=== PATIENT | male | born 1995 | race African-American/Black ===

== ENCOUNTER → 2018-07-29 16:33 | Emergency (ER) | payer OTHER ==
--- NOTE | 2018-07-29 16:59 | ED ---
Psychiatric Complaint - HPI Summary HPI Summary: A 23 y/o male brought in by police presents to [facility] because his mother is concerned that the patient has not been taking his medications for schizophrenia or bipolar. The patient is from [place], is living alone, reports a good relationship with his mother, denies SI or HI, and denies being diagnosed with schizophrenia or bipolar or requiring medications. The patient denies drug or alcohol use. He claims that he is here in [place] on vacation for one month. He gave permission to speak with his mother. At triage he rated his pain as a 0/10 in severity. - History Of Current Complaint Chief Complaint: EDPsychosocial Time Seen by Provider: 07/29/18 16:43 Hx Obtained From: Patient, Other: - police Onset/Duration: Sudden Onset, Lasting Hours, Still Present Timing: Hours Severity Initially: Mild Severity Currently: Mild Character: Depressed Aggravating Factor(s): Nothing Alleviating Factor(s): Nothing Associated Signs And Symptoms: Positive: Negative Has Suicidal: Denies: Thoughts Has Homicidal: Denies: Thoughts - Allergies/Home Medications Allergies/Adverse Reactions: Allergies Allergy/AdvReac Type Severity Reaction Status Date / Time No Known Allergies Allergy Verified 07/29/18 16:40 Home Medications: Home Medications NK [No Home Medications Reported] 07/29/18 [History Confirmed 07/29/18] PMH/Surg Hx/FS Hx/Imm Hx Sensory History: Reports: Hx Deafness EENT History: Reports: Hx Deafness Psychiatric History: Reports: Hx Schizophrenia - according to mother, Hx Bipolar Disorder - according to mother Infectious Disease History: No Infectious Disease History: Denies: Traveled Outside the [place] in Last 30 Days - Family History Known Family History: Positive: Non-Contributory - Social History Alcohol Use: None Hx Substance Use: No Substance Use Type: Reports: None Hx Tobacco Use: No Smoking Status (MU): Never Smoked Tobacco Review of Systems Negative: Fever Psychological: Other - negative: SI and HI Positive: Other - positive: reportedly mother believes that the patient is not taking medications for schizophrenia and bipolar but the patient claims that he has not been diagnosed with either All Other Systems Reviewed And Are Negative: Yes Physical Exam - Summary Physical Exam Summary: GENERAL: Patient is a well-developed and nourished M who is lying comfortable in the stretcher. Patient is not in any acute respiratory distress. HEAD AND FACE: Normocephalic EYES: PERRLA, EOMI x 2. EARS: Hearing grossly intact. MOUTH: Oropharynx within normal limits. NECK: Supple, trachea is midline, no adenopathy, no JVD, no carotid bruit. CHEST: Symmetric, no tenderness at palpation LUNGS: Clear to auscultation bilaterally. No wheezing or crackles. CVS: Regular rate and rhythm, S1 and S2 present, no murmurs or gallops appreciated. ABDOMEN: Soft, non-tender. Bowel sounds are normal. No abnormal abdominal pulsations. EXTREMITIES: Full ROM in all major joints, no edema, no cyanosis or clubbing. NEURO: Alert and oriented x 3. No acute neurological deficits. Speech is normal and follows commands. SKIN: Dry and warm Psych: flat and sad affect Triage Information Reviewed: Yes Vital Signs On Initial Exam: Initial Vitals Temp Pulse Resp BP Pulse Ox 98.4 F 101 16 153/85 100 07/29/18 16:35 07/29/18 16:35 07/29/18 16:35 07/29/18 16:35 07/29/18 16:35 Vital Signs Reviewed: Yes Diagnostics - Vital Signs Vital Signs Temp Pulse Resp BP Pulse Ox 07/29/18 16:35 98.4 F 101 16 153/85 100 - Laboratory Result Diagrams: 07/29/18 17:13 07/29/18 17:13 Lab Statement: Any lab studies that have been ordered have been reviewed, and results considered in the medical decision making process. Re-Evaluation - Re-Evaluation First Eval Re-Evaluation Time: 16:52 Change: Unchanged Comment: Pt cleared for MHE. Course/Dx - Course Course Of Treatment: A 23 y/o male brought in by police presents to [facility] because his mother is concerned that the patient has not been taking his medications for schizophrenia or bipolar. The patient denies having schizoprhenia or bipolar. The physical exam revealed a flat and sad affect. Bloodwork, chemistries, labs and toxicology obtained and the patient has been medically cleared for MHE. Per mental health fur tinter, the patient wants to be admitted. Discussed case with Dr. Florez, psych, who recommends placing the patient on a Mental health hold in order to get more history. The patient will be signed out from Dr. Torres to Dr. Weldon upon shift change at 19:00 07/29/18 pending mental health hold. - Differential Dx/Clinical Impression Provider Diagnosis: Mental health problem - Physician Notifications Discussed Care Of Patient With: Filiberto Florez Time Discussed With Above Provider: 18:45 Instructed by Provider To: Other - recommends placing the patient on a Mental health hold in order to get more history. Discharge - Sign-Out/Discharge Documenting (check all that apply): Sign-Out Patient Signing out patient TO: Heidi Weldon - pending mental health hold Patient Received Moderate/Deep Sedation with Procedure: No - Discharge Plan Condition: Stable Referrals: No Primary Care Phys,NOPCP [Primary Care Provider] - - Billing Disposition and Condition Condition: STABLE - Attestation Statements Document Initiated by Scribe: Yes Documenting Scribe: Jensen Thorpe Provider For Whom Marcelo is Documenting (Include Credential): Wanda Torres MD Scribe Attestation: Jensen Scott, scribed for Wanda Torres MD on 07/29/18 at 1853. Scribe Documentation Reviewed: Yes Provider Attestation: The documentation as recorded by the Jensen serrato accurately reflects the service I personally performed and the decisions made by , Alba Torres MD Status of Scribe Document: Viewed
[2018-07-29 17:26] LABS: ABS Basophils 0.1 10^3/ul (0-0.2); ABS Eosinophils 0.1 10^3/ul (0-0.6); ABS Lymphocytes 2.6 10^3/ul (1.0-4.8); ABS Monocytes 0.6 10^3/ul (0-0.8); Eosinophil % 1.5 %; Hematocrit 43 % (42-52); Hemoglobin 14.3 g/dL (14.0-18.0); Lymphocyte % 35.6 %; Mean Corpuscular HGB Conc 33 g/dL (31-36); Mean Corpuscular Hemoglobin 28 pg (27-31); Mean Corpuscular Volume 84 fL (80-94); Mean Platelet Volume 6.4 fL (7.4-10.4); Nucleated Red Blood Cells % 0.1; Platelet Count 257 10^3/uL (150-450); Red Blood Count 5.12 10^6 /uL (4.18-5.48); Red Cell Distribution Width 13 % (10-15); White Blood Count 7.4 10^3/uL (3.5-10.8)
[2018-07-29 17:41] LABS: ALT 16 U/L (7-52); AST 26 U/L (13-39); Albumin 4.4 g/dL (3.2-5.2); Albumin/Globulin Ratio 1.8 (1-3); Alkaline Phosphatase 38 U/L (34-104); Anion Gap 5 mmol/L (2-11); BUN/Creatinine Ratio 7.8 (8-20); Blood Urea Nitrogen 13 mg/dL (6-24); CO2 Carbon Dioxide 30 mmol/L (22-32); Calcium 10.1 mg/dL (8.6-10.3); Chloride 105 mmol/L (101-111); EGFR Non-African American 50.4 (>60); Globulin 2.5 g/dL (2-4); Glucose 97 mg/dL (70-100); Potassium 3.9 mmol/L (3.5-5.0); Sodium 140 mmol/L (135-145); Total Protein 6.9 g/dL (6.4-8.9)
[2018-07-29 18:04] LABS: Acetaminophen < 15 mcg/mL; Alcohol < 10 mg/dL (<10); Salicylate < 2.50 mg/dL (<30)
[2018-07-29 18:12] LABS: Urine Appearance Cloudy; Urine Bilirubin Negative (Negative); Urine Blood Negative (Negative); Urine Color Yellow; Urine Glucose Negative (Negative); Urine Ketones Negative (Negative); Urine Nitrite Negative (Negative); Urine Protein Negative (Negative); Urine Specific Gravity 1.025 (1.010-1.030); Urine Urobilinogen Positive (Negative)
[2018-07-29 18:17] LABS: TSH (Thyroid Stimulating Horm) 0.67 mcIU/mL (0.34-5.60)
[2018-07-29 18:35] LABS: Urine Benzodiazepine Screen None Detected (None Detect); Urine Opiates Screen None Detected (None Detect)
--- NOTE | 2018-07-29 19:23 | ED ---
Progress - Progress Note Progress Note: This patient is signed out from Dr. Torres upon shift change at 1900 07/29/18 pending MH evaluation and disposition. Re-Evaluation - Re-Evaluation First Eval Re-Evaluation Time: 16:52 Change: Unchanged Comment: Pt cleared for MHE. Course/Dx - Course Course Of Treatment: This patient is signed out from Dr. Torres upon shift change at 1900 07/29/18 pending MH evaluation and disposition. Upon MH evaluation, mental health athletic field custodian spoke with Dr. Florez, psychiatrist, who would like to discharge patient home. Per mental health athletic field custodian, patient denies taking psychiatric medication. Per mental health athletic field custodian, the information from hotel staff and mother are different. Patient will be discharged home. He was instructed to return to ED for new or worsening symptoms. Patient understands and is agreeable to this plan. - Diagnoses Provider Diagnoses: Evaluation by psychiatric service required Discharge - Sign-Out/Discharge Documenting (check all that apply): Patient Departure - Discharge Patient Received Moderate/Deep Sedation with Procedure: No - Discharge Plan Condition: Stable Disposition: HOME Referrals: [facility] [Outside] No Primary Care Phys,NOPCP [Primary Care Provider] - - Attestation Statements Document Initiated by Scribe: Yes Documenting Scribe: Flory Mijares Provider For Whom Scribe is Documenting (Include Credential): Heidi Weldon MD Scribe Attestation: Flory Scott, scribed for Heidi Weldon MD on 07/29/18 at 2335. Status of Scribe Document: Ready
[2018-07-29 21:22] VITALS: BP 138/87
== END | disposition home or self-care (01) ==
LOC: ED 16:33
DX: F20.9 Schizophrenia, unspecified (principal); F31.9 Bipolar disorder, unspecified; Z79.899 Other long term (current) drug therapy
CPT/HCPCS: 36415; 80053; 80307; 80320; 80329; 81003; 84443; 85025; 99285; G0480

== ENCOUNTER 2018-10-25 16:38 | Emergency (ER) | payer OTHER ==
--- NOTE | 2018-10-25 16:59 | ED ---
Neurological HPI - HPI Summary HPI Summary: 23 year old M brought to [facility] by EMS with a chief complaint of confusion since today 10/25/18, at 1630. Symptoms aggravated by nothing. Symptoms alleviated by nothing. Patient reports he was in the [employer] store in [place] [facility] when the EMS was called for him. Patient reports he was feeling good and denies any pain , diabetes, HTN, schizophrenia, or any other medical problems. Patient denies taking any daily medications but recalls past seizure though he does not remember when. Patient reports he is from [place] and he is here playing football for [employer]. Patient reports he has no family here, is looking for a place to stay, and that he slept in [place] last night. Patient denies allergies to medications, tobacco use, alcohol consumption, and drug use. Patient denies SI, hallucinations, and HI. Patient recalls the year and the month but does not recall the day. - History of Current Complaint Stated Complaint: GENERAL ILLNESS PER EMS Time Seen by Provider: 10/25/18 16:46 Hx Obtained From: Patient Onset/Duration: Still Present Character: Other: - confused, acting "strange" Aggravating: Nothing Alleviating: Nothing Related Hx: Seizure - Allergy/Home Medications Allergies/Adverse Reactions: Allergies Allergy/AdvReac Type Severity Reaction Status Date / Time No Known Allergies Allergy Verified 07/29/18 16:40 PMH/Surg Hx/FS Hx/Imm Hx Psychiatric History: Reports: Hx Schizophrenia - according to mother, Hx Bipolar Disorder - according to mother - Surgical History Surgery Procedure, Year, and Place: none - Family History Known Family History: Positive: Non-Contributory - Social History Alcohol Use: None Hx Substance Use: No Substance Use Type: Reports: None Hx Tobacco Use: No Smoking Status (MU): Never Smoked Tobacco Review of Systems Negative: Fever Neurological: Other - denies SI, HI, hallucinations All Other Systems Reviewed And Are Negative: Yes Physical Exam - Summary Physical Exam Summary: Constitutional: Well-developed, Well-nourished, Alert. (-) Distressed Skin: Warm, Dry HENT: Normocephalic; Atraumatic Eyes: Conjunctiva normal Neck: Musculoskeletal ROM normal neck. (-) JVD, (-) Stridor, (-) Tracheal deviation Cardio: Rhythm regular, rate normal, Heart sounds normal; Intact distal pulses; The pedal pulses are 2+ and symmetric. Radial pulses are 2+ and symmetric. (-) Murmur Pulmonary/Chest wall: Effort normal. (-) Respiratory distress, (-) Wheezes, (-) Rales Abd: Soft, (-) tenderness, (-) Distension, (-) Guarding, (-) Rebound Musculoskeletal: (-) Edema Lymph: (-) Cervical adenopathy Neuro: Slow to respond, does respond appropriately, flat affect, seems to periodically hear voices Psych: Mood and affect Normal Triage Information Reviewed: Yes Vital Signs Reviewed: Yes Diagnostics - Laboratory Result Diagrams: 10/25/18 17:04 10/25/18 17:04 Lab Statement: Any lab studies that have been ordered have been reviewed, and results considered in the medical decision making process. Re-Evaluation - Re-Evaluation First Eval Re-Evaluation Time: 18:40 Comment: Pt is answering questions more thoroughly. He can recall events of the day and does not know why he was so drowsy when he got here. Pt does not want to be evalauted by mental health provider. Course/Dx - Course Course Of Treatment: Patient was brought in with altered mental status from the comments. Per chart review, patient was seen here in July with a similar incident. Patient is from [place] where his mother lives. Patient's mother was contacted during that visit and is concerned about his mental health status. Patient had blood work and drug screen performed which are all unremarkable. Patient became more awake while here and cannot explain why he was altered. Patient did not want to stay for mental health evaluation. Patient had no red flag symptoms for mental health and was not placed on a hold. - Diagnoses Provider Diagnoses: Altered mental status, Unspecified psychosis Discharge ED - Sign-Out/Discharge Documenting (check all that apply): Patient Departure - discharge Patient Received Moderate/Deep Sedation with Procedure: No - Discharge Plan Condition: Stable Disposition: HOME Patient Education Materials: Schizophrenia (ED), Psychotic Disorder (ED), Suicide Prevention (ED) Referrals: [facility] [Outside] - As Soon As Possible Additional Instructions: Please follow up with resources provided. Come back if you want to be evaluated for undiagnosed mental health issues. - Billing Disposition and Condition Condition: STABLE Disposition: Home - Attestation Statements Document Initiated by Scribe: Yes Documenting Scribe: Dalia Bautista Provider For Whom Scribe is Documenting (Include Credential): Dr. Jeffery Pearce MD Scribe Attestation: I, Dalia Bautista, scribed for Dr. Jeffery Pearce MD on 10/26/18 at 1036. Scribe Documentation Reviewed: Yes Provider Attestation: The documentation as recorded by the scribe, Dalia Bautista accurately reflects the service I personally performed and the decisions made by me, Dr. Jeffery Pearce MD Status of Scribe Document: Viewed
[2018-10-25 17:13] LABS: ABS Basophils 0.1 10^3/ul (0-0.2); ABS Eosinophils 0.1 10^3/ul (0-0.6); ABS Lymphocytes 2.4 10^3/ul (1.0-4.8); ABS Monocytes 0.7 10^3/ul (0-0.8); ABS Neutrophils 3.7 10^3/ul (1.5-7.7); Eosinophil % 1.4 %; Hematocrit 37 % (42-52); Hemoglobin 12.3 g/dL (14.0-18.0); Lymphocyte % 34.1 %; Mean Corpuscular HGB Conc 33 g/dL (31-36); Mean Corpuscular Hemoglobin 28 pg (27-31); Mean Corpuscular Volume 84 fL (80-94); Mean Platelet Volume 6.4 fL (7.4-10.4); Nucleated Red Blood Cells % 0.3; Platelet Count 228 10^3/uL (150-450); Red Blood Count 4.43 10^6 /uL (4.18-5.48); Red Cell Distribution Width 15 % (10-15)
[2018-10-25 17:31] LABS: ALT 125 U/L (7-52); AST 38 U/L (13-39); Albumin/Globulin Ratio 1.9 (1-3); Alcohol < 10 mg/dL (<10); Alkaline Phosphatase 40 U/L (34-104); Anion Gap 4 mmol/L (2-11); BUN/Creatinine Ratio 15.6 (8-20); Blood Urea Nitrogen 17 mg/dL (6-24); CO2 Carbon Dioxide 28 mmol/L (22-32); Calcium 8.8 mg/dL (8.6-10.3); Chloride 107 mmol/L (101-111); EGFR African American 99.7 (>60); EGFR Non-African American 82.4 (>60); Globulin 2.1 g/dL (2-4); Glucose 102 mg/dL (70-100); Sodium 139 mmol/L (135-145); Total Protein 6.1 g/dL (6.4-8.9)
[2018-10-25 17:33] LABS: Urine Appearance Clear; Urine Bilirubin Negative (Negative); Urine Blood Negative (Negative); Urine Color Yellow; Urine Glucose Negative (Negative); Urine Ketones Negative (Negative); Urine Nitrite Negative (Negative); Urine Protein Negative (Negative); Urine Specific Gravity 1.023 (1.010-1.030); Urine Urobilinogen Negative (Negative)
[2018-10-25 17:46] LABS: TSH (Thyroid Stimulating Horm) 1.65 mcIU/mL (0.34-5.60)
[2018-10-25 18:06] LABS: Urine Benzodiazepine Screen None Detected (None Detect); Urine Opiates Screen None Detected (None Detect)
[2018-10-25 18:50] VITALS: BP 112/67
== END 2018-10-25 18:51 | disposition home or self-care (01) ==
LOC: ED 16:38
DX: F29 Unspecified psychosis not due to a substance or known physiological condition (principal); R41.82 Altered mental status, unspecified; F20.9 Schizophrenia, unspecified; F31.9 Bipolar disorder, unspecified
CPT/HCPCS: 36415; 80053; 80307; 80320; 81003; 84443; 85025; 99282; G0480

== ENCOUNTER 2018-10-26 17:47 | Inpatient (IN) | payer OTHER ==
--- NOTE | 2018-10-26 18:13 | ED ---
Psychiatric Complaint - HPI Summary HPI Summary: This pt is a 23 Y/O M brought in by EMS to [facility] for a CC of a panic attack. EMS states that he was found in a womans rest room and was uncooperative and lethargic. He states that he did not do any drugs today. He states that he has no SI or HI. He recently spoke to his mother who lives in [place]. He denies any fever, chills, CP, SOB, N/V, headaches, and abdominal pain. He has no aggravating or alleviating symptoms. He states that he is agreeable to being evaluated by mental health. He denies hearing any voices in his head. His medications and allergies were reviewed. - History Of Current Complaint Chief Complaint: EDPsychosocial Time Seen by Provider: 10/26/18 17:55 Hx Obtained From: Patient Onset/Duration: Sudden Onset, Resolved Timing: Constant Severity Initially: Severe Severity Currently: Mild Character: Lethargic Aggravating Factor(s): Nothing Alleviating Factor(s): Nothing Has Suicidal: Denies: Thoughts, With A Plan Has Homicidal: Denies: Thoughts, With A Plan - Allergies/Home Medications Allergies/Adverse Reactions: Allergies Allergy/AdvReac Type Severity Reaction Status Date / Time No Known Allergies Allergy Verified 07/29/18 16:40 PMH/Surg Hx/FS Hx/Imm Hx Previously Healthy: Yes Sensory History: Reports: Hx Deafness Psychiatric History: Reports: Hx Schizophrenia - according to mother, Hx Bipolar Disorder - according to mother - Surgical History Surgical History: None Surgery Procedure, Year, and Place: none Infectious Disease History: No Infectious Disease History: Denies: Traveled Outside the US in Last 30 Days - Family History Known Family History: Positive: Non-Contributory - Social History Alcohol Use: None Hx Substance Use: No Substance Use Type: Reports: None Hx Tobacco Use: No Smoking Status (MU): Never Smoked Tobacco Review of Systems Negative: Fever, Chills Negative: Chest Pain Negative: Shortness Of Breath Negative: Vomiting, Nausea Negative: Headache All Other Systems Reviewed And Are Negative: Yes Physical Exam - Summary Physical Exam Summary: Constitutional: Well-developed, Well-nourished, Alert. (-) Distressed Skin: Warm, Dry HENT: Normocephalic; Atraumatic Eyes: Conjunctiva normal Neck: Musculoskeletal ROM normal neck. (-) JVD, (-) Stridor, (-) Tracheal deviation Cardio: Rhythm regular, rate normal, Heart sounds normal; Intact distal pulses; The pedal pulses are 2+ and symmetric. Radial pulses are 2+ and symmetric. (-) Murmur Pulmonary/Chest wall: Effort normal. (-) Respiratory distress, (-) Wheezes, (-) Rales Abd: Soft, (-) tenderness, (-) Distension, (-) Guarding, (-) Rebound Musculoskeletal: (-) Edema Lymph: (-) Cervical adenopathy Neuro: Alert, Oriented x3 Psych: Slow to answer but answers questions appropriately. Flat affect. Triage Information Reviewed: Yes Vital Signs On Initial Exam: Initial Vitals Temp Pulse Resp BP Pulse Ox 98.2 F 92 18 127/69 98 10/26/18 18:00 10/26/18 18:00 10/26/18 18:00 10/26/18 18:00 10/26/18 18:00 Vital Signs Reviewed: Yes Diagnostics - Vital Signs Vital Signs Temp Pulse Resp BP Pulse Ox 10/26/18 18:00 98.2 F 92 18 127/69 98 - Laboratory Lab Statement: Any lab studies that have been ordered have been reviewed, and results considered in the medical decision making process. Course/Dx - Course Course Of Treatment: Patient is here with symptoms consistent of schizophrenia. Patient does not take his medications. Patient seen here and medical clear for mental health standpoint. The psychiatry team saw patient and recommended an inpatient admission that was involuntary. - Differential Dx/Clinical Impression Provider Diagnosis: Schizophrenia - Physician Notifications Discussed Care Of Patient With: Filiberto Florez Time Discussed With Above Provider: 21:39 Instructed by Provider To: Admit As Inpatient - involuntary Admit/Transition Orders Completed By ED Provider: Yes Discharge ED - Sign-Out/Discharge Documenting (check all that apply): Patient Departure - admitted involuntarily Patient Received Moderate/Deep Sedation with Procedure: No - Discharge Plan Condition: Stable Disposition: ADMITTED TO [facility] Referrals: No Primary Care Phys,NOPCP [Primary Care Provider] - - Billing Disposition and Condition Condition: STABLE Disposition: Admitted to [facility] - Attestation Statements Document Initiated by Scribe: Yes Documenting Scribe: Suresh Mckeon Provider For Whom Scribe is Documenting (Include Credential): Jeffery Pearce MD Scribe Attestation: I, Suresh Mike, scribed for Jeffery Pearce MD on 10/26/18 at 2124. Scribe Documentation Reviewed: Yes Provider Attestation: The documentation as recorded by the Suresh serrato accurately reflects the service I personally performed and the decisions made by me, Jeffery Pearce MD Status of Scribe Document: Viewed
[2018-10-27] MEDS ORDERED: Acetaminophen TAB* 325 MG PO PRN (01:23)
[2018-10-27] MEDS ORDERED: Al Hydrox/Mg Hydrox/Simet LIQ* 30 ML UDC PO PRN (01:23)
[2018-10-27] MEDS: Vitamin THERAPEUTIC TAB PO SCH (09:41)
[2018-10-27] MEDS ORDERED: LORazepam TAB(*) 1 MG PO PRN (13:44)
[2018-10-27] MEDS ORDERED: OLANzapine TAB*ODT* 10 MG TAB PO PRN (13:45)
--- NOTE | 2018-10-27 16:33 | HP ---
HISTORY AND PHYSICAL: DATE OF ADMISSION: 10/26/18 PROVIDER: Suzy Mata NP, Psychiatry. SUPERVISING PHYSICIAN: Ravindra De La Fuente MD * (DICTATED BY SUZY MATA NP) JUSTIFICATION FOR ADMISSION: The patient is in need of 24-hour supervision and care secondary to gross disorganization. CHIEF COMPLAINT: "I've had two panic attacks that led me to the hospital." HISTORY OF PRESENT ILLNESS: The patient is a 23-year-old black male who is single who has a history of schizophrenia according to his mother, who arrives brought in by police and is here on a 9.39 status after being found in the women 's bathroom of the [facility] and apparently locking himself inside being either too afraid or too confused to come out. When I speak to Isaiah, he has very little to say to me. He appears to be tired or catatonic. He is slow to move and his voice is extremely soft. He sometimes mumbles and he sometimes trails off. His description of his mental illness is that he has panic attacks. He states these have been going on for more than 15 years. He states he came from [place] to enroll in [employer], but he is undecided about what in particular he wants to do. He states he gets around from [place] to [place] by taking a bus and by walking. I did speak with his mom, Tiesha Sahni. Her phone number is [phone]. She indicates that Isaiah is a graduate of [employer] and once he graduated he started acting strangely. He used a knife threateningly. He was diagnosed with paranoid schizophrenia. He was Mackenzie Acted. He was given olanzapine 10 mg at bedtime, which worked well for him, although he never agreed to take medications. She had to crush them into his food and he only would eat the food as long as he could not taste the medications. He eventually got himself off of the medications and for a while he did well. Then in June, the before Mother's Day, he said he was going to [place]. He called his mother to tell her this. She asked why he wanted to leave so quickly and he did not really answer, stating he would text her the answer, but he simply just got on a bus and left. He got to [place], dropped off his suitcase at his cousin's house and left. They followed him using [employer]. Tiesha asked for police help. They found out that he was not able to be found at first and they found out later that was because he was walking around inside buildings. He was eventually found to have trespassed on private property. They talked to Madeline Herman and as it was her last day, things did not get followed up on. Tiesha wants to bring him back to [place]. She comes up every couple of weekends to try to take care of him when she can find him. She took him to a neuropsychiatrist in [place], who put him on a medication that he would not take. The first weekend in September, she took him to Dr. Sonia Poe, who is a psychologist in [place]. She has offered him many appointments. He has refused to go back. Tiesha is afraid that he will begin walking back to [place] and he is disorganized enough to do that she believes. Isaiah is not oriented to time or date. He does know the month and the year. He is not clear about where he is, what building he is in. He says he is at [facility] when he is truly in the hospital. He also does not know his mother's phone number. At this time, he is disorganized and confused. He may be hearing voices, it is unclear. He is quite ill. PAST PSYCHIATRIC HISTORY: He had an admission in [place] where he stayed for about 2 weeks. He says it was due to a suicidal episode. It is unclear to me what the actual reason for his admission was. At any rate, it lasted 2 weeks. Previous psychiatric medications include Risperdal and olanzapine. TRAUMA HISTORY: Unknown. FORENSIC ISSUES: He was Mackenzie Acted in [place]. SUBSTANCE ABUSE HISTORY: Denied. His laboratory screens indicate that there are no drugs of abuse detected. He also states he does not smoke. PAST MEDICAL HISTORY: From his mother Tiesha, it appears that he is healthy. ALLERGIES: There are at this time no known allergies. FAMILY HISTORY: His mother denies that there is a family history of mental illness. SOCIAL HISTORY: He is from [place]. He is the only child in that family. He is educated to graduating college at [employer]. He is not employed at this time, although he has been employed in the past. REVIEW OF SYSTEMS: The patient reports feeling fatigued. He denies shortness of breath, heat or cold intolerance, chest pain, or abdominal pain. He denies neurological symptoms. He denies fevers or changes in weight. PHYSICAL EXAMINATION GENERAL: Isaiah is well developed, well nourished, and alert. VITAL SIGNS: On 10/27/18, temperature 98.7, pulse 81, respiration rate 16, O2 sat on room air is 92%, blood pressure is 121/82. It should be noted that on all previous captures of O2 sat values, they were between 97% and 100%. HEENT: Normocephalic, atraumatic. Eyes: Conjunctivae normal. NECK: Musculoskeletal range of motion, normal neck. No JVD. No stridor. No tracheal deviation. PULMONARY: Chest wall: Effort normal. No respiratory distress. No wheezes. No rales. CARDIO: Rhythm regular, rate normal. Heart sounds normal. Intact distal pulses. Pedal pulses are 2+ and symmetric. Radial pulses are 2+ and symmetric. There is no murmur. ABDOMEN: Soft, nontender. No distention. No guarding. No rebound. MUSCULOSKELETAL: No edema. LYMPH: Negative cervical adenopathy. NEURO: Alert, oriented x2. He is not oriented to time or to situation. SKIN: Warm and dry. LABORATORY DATA: Most laboratory data are within normal limits. Hemoglobin is low at 12.3, hematocrit low at 37, MPV low at 6.4. Glucose is high at 102. ALT high at 125. Total protein low at 6.1. Urine screen is completely normal. Toxicology screen is free of all drugs of abuse. MENTAL STATUS EXAMINATION: Isaiah is a 5 feet and 8 inches, 190-pound black male, who has closely cropped hair. He sits very still and appears somnolent. His eye contact is poor. He is minimally cooperative because of his somnolence and what appears to be disorganization. His speech is slow and soft with a low volume. He is dysthymic. He has a flat affect. His thought processes appeared to be impoverished. He appears to have odd thought content, but it is unclear what that thought content is. He denies homicidality or suicidality at this time. He denies auditory and visual hallucinations although he appears to be responding to internal stimuli. His insight is poor. His judgment is poor. He is alert and oriented to place and person. DIAGNOSIS: Schizophrenia. IMPRESSION: Isaiah is a 23-year-old black male who comes to [place] what he believes is to enroll in [employer]. He in fact has been trespassing and wandering and has been dirty and living on the streets. His mother has indicated that this is not a normal thing for Isaiah and that she wants him to come back to [place]. PLAN: The patient is admitted to the adult behavioral health unit and placed on q.15-minute checks for his own safety. He is encouraged to participate in supportive milieu, individual and group therapies when he is able. Estimated length of stay is 7 to 10 days. We will titrate medications to efficacy including Risperdal, Invega, hopefully Invega Sustenna and possibly a benzodiazepine and monitor for mood and thought content. Discharge planning will include family involvement including his mother and outpatient providers likely in [place]. SUZY MATA NP [id number]/CPS #: [id number] IDALIA
[2018-10-27] MEDS ORDERED: risperiDONE TAB* 2 MG PO SCH (21:00)
[2018-10-27] MEDS ORDERED: risperiDONE TAB* 1 MG PO SCH (21:00)
[2018-10-28] MEDS: Vitamin THERAPEUTIC TAB PO SCH (13:57)
--- NOTE | 2018-10-28 16:24 | PN ---
Subjective - Subjective Date of Service: 10/28/18 Service Type: 31836 Hosp care 15 min low complexity Subjective: Isaiah may be less paranoid than he was yesterday as he allowed me to approach closer to him without him backing away as he did yesterday. He did not know the day of the week (thinking it was Saturday instead of Saturday) and was not able to process plans for the termination clerk. He did take 2 mg of Risperdal last night. We will increase to 4 mg tonight. I did speak with his mom, Deepti ([phone]), who was worried about him. She was reassured that he was safe and healthy, but that he was not well oriented. Objective - General Observations Appearance: Neat Appears Stated Age: Yes Stature: Overweight Posture: WNL Eye Contact: Intermittent Behavior/Activity: Peculiar - Interaction Observations Attitude Towards Examiner: Cooperative, Confused Stated Mood: Dysphoric Affect: Blunted Speech Pattern/Tone: Clear, Quiet Volume Perception: WNL Thought Content: Preoccupation/Ruminations, Paranoid Hallucination Type: Denies, Auditory, Visual Delusion Type: Denies - Cognitive Function Orientation: Person, Place, Situation Level of Consciousness: Awake, Alert, Appropriate Cognition: Impaired Cognition, Impaired Memory, Impaired Attention/Concentration , Impaired Ability to Abstract Estimated Intelligence: Normal Insight: Difficulty Acknowledging Presence of Psyciatric Problems Judgment Within Normal Limits: No Ability to Make Reasonable Decisions: Serverely Impaired - Medication Compliance Cooperative with Inpatient Medication Regimen: Yes - Group Participation Participates in Group Activities: Partial Assessment - Assessment Merits Inpatient Hospitalization: For Immediate Safety Inpatient DSM-V Dx: F20.9 Clinical Impression: Isaiah is a 23-year-old black man from [place] who is diagnosed with schizophrenia who is in the hospital following a few incidents of his bizarre behavior, trespassing, and eventually being found in the women's bathroom of the [facility]. He is started on Risperdal. Plan - Plan Treatment Plan: Name: ISAIAH JONES Birthdate: 1995 [id number] Risperdal at bedtime increased from 2 mg of 4 mg. We will wait to assess him daily. Continued Medication Management: Different Medication Medications: Current Medications Acetaminophen (Tylenol Tab*) 650 mg PO Q4H PRN PRN Reason: PAIN or TEMP > 101 F Al Hydrox/Mg Hydrox/Simethicone (Maalox Plus*) 30 ml PO Q4H PRN PRN Reason: INDIGESTION Lorazepam (Ativan Tab(*)) 1 mg PO Q4H PRN PRN Reason: ANXIETY Lorazepam (Ativan Tab(*)) 2 mg PO BEDTIME ROSALINE Multivitamins (Theragran Tab*) 1 tab PO DAILY ROSALINE Last Admin: 10/28/18 13:57 Dose: Not Given Olanzapine (Zyprexa *Odt*) 10 mg PO Q6H PRN PRN Reason: AGITATION Risperidone (Risperdal*) 4 mg PO BEDTIME ROSALINE
[2018-10-28] MEDS: LORazepam TAB(*) 1 MG PO SCH (20:37)
[2018-10-28] MEDS: risperiDONE TAB* 2 MG PO SCH (20:37)
[2018-10-29] MEDS: Vitamin THERAPEUTIC TAB PO SCH (10:31)
--- NOTE | 2018-10-29 16:35 | PN ---
BSU: Group Therapy Note - Service Type Service Type: [id number] Group Psychotherapy - Medication Education Group: Patient attended group and presented with flat affect that did not vary with discussion. Although responsive to direct prompts to respond to questions, patient did not engage in spontaneous conversation.
--- NOTE | 2018-10-29 16:36 | PN ---
Subjective - Subjective Date of Service: 10/29/18 Service Type: [id number] Hosp care 15 min low complexity Subjective: Isaiah is taking medications. He also agreed to an injectable medication which will be Invega Sustenna. His eye contact has improved and he seems happier, at least occasionally smiling. Although he is not talking much, he still has signs of psychosis: paranoia, incongruent affect, appearance of responding to internal stimuli. Objective - General Observations Appearance: Neat, Well Groomed Appears Stated Age: Yes Stature: WNL Posture: WNL Eye Contact: Intermittent Behavior/Activity: Peculiar - Interaction Observations Attitude Towards Examiner: Cooperative, Confused Stated Mood: Dysphoric, Anxious Affect: Blunted Speech Pattern/Tone: Clear, Quiet Volume Thought Process: Disorganized Thought Content: Paranoid Hallucination Type: Auditory Delusion Type: Denies - Cognitive Function Orientation: A&O x 4 Level of Consciousness: Awake, Alert, Appropriate Cognition: Impaired Cognition, Impaired Ability to Abstract Estimated Intelligence: Normal Insight: Difficulty Acknowledging Presence of Psyciatric Problems Ability to Make Reasonable Decisions: Serverely Impaired - Medication Compliance Cooperative with Inpatient Medication Regimen: Yes - Group Participation Participates in Group Activities: Yes Assessment - Assessment Merits Inpatient Hospitalization: For Immediate Safety Inpatient DSM-V Dx: F20.9 Clinical Impression: Isaiah is a 23-year-old black man from [place] who is diagnosed with schizophrenia who is in the hospital following a few incidents of his bizarre behavior, trespassing, and eventually being found in the women's bathroom of the [facility]. He is started on Risperdal. Plan - Plan Treatment Plan: Name: ISAIAH JONES Birthdate: 1995 [id number] Risperdal at bedtime increased from 2 mg of 4 mg. We will wait to assess him daily. 10/29/18 Accepted Risperdal increase. Plan for injectable Saturday. Continued Medication Management: Different Medication Medications: Current Medications Acetaminophen (Tylenol Tab*) 650 mg PO Q4H PRN PRN Reason: PAIN or TEMP > 101 F Al Hydrox/Mg Hydrox/Simethicone (Maalox Plus*) 30 ml PO Q4H PRN PRN Reason: INDIGESTION Lorazepam (Ativan Tab(*)) 1 mg PO Q4H PRN PRN Reason: ANXIETY Lorazepam (Ativan Tab(*)) 2 mg PO BEDTIME ROSALINE Last Admin: 10/28/18 20:37 Dose: 2 mg Multivitamins (Theragran Tab*) 1 tab PO DAILY ROSALINE Last Admin: 10/29/18 10:31 Dose: 1 tab Olanzapine (Zyprexa *Odt*) 10 mg PO Q6H PRN PRN Reason: AGITATION Paliperidone Palmitate (Invega Sustenna*) 234 mg IM ONCE ONE Stop: 10/29/18 11:24 Paliperidone Palmitate (Invega Sustenna*) 156 mg IM ONCE ONE Stop: 11/01/18 11:24 Risperidone (Risperdal*) 4 mg PO BEDTIME ROSALINE Last Admin: 10/28/18 20:37 Dose: 4 mg
[2018-10-29] MEDS: LORazepam TAB(*) 1 MG PO SCH (20:56)
[2018-10-29] MEDS: risperiDONE TAB* 2 MG PO SCH (20:56)
[2018-10-30 09:10] LABS: HDL Cholesterol 62.6 mg/dL
[2018-10-30] MEDS: Vitamin THERAPEUTIC TAB PO SCH (10:06)
--- NOTE | 2018-10-30 11:33 | PN ---
BSU: Group Therapy Note - Service Type Service Type: [id number] Group Psychotherapy - CBT Group Note: Isaiah was attentive and participatory in programming this morning, presenting with euthymic affect.
--- NOTE | 2018-10-30 15:00 | PN ---
Subjective - Subjective Date of Service: 10/30/18 Service Type: 41095 Hosp care 35 min high complexity Subjective: Isaiah is improving slowly. Today he spoke more fluidly and was slightly more talkative than he has been in the past. He also met with Joyce Mackenzie ([phone]) who knows him from when he was homeless on the street. She spent quite some time with him talking about his future. Isaiah's mom would like him to return to [place], but according to Joyce, he would not like that. 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 He stated, "Literally everyone in [place] is a personal injury paralegal. Everyone." Objective - General Observations Appearance: Neat Appears Stated Age: Yes Stature: WNL Posture: WNL Eye Contact: Intermittent Behavior/Activity: Peculiar - Interaction Observations Attitude Towards Examiner: Cooperative, Confused Stated Mood: Dysphoric Affect: Flat Speech Pattern/Tone: Clear, Quiet Volume Thought Process: Disorganized Thought Content: Preoccupation/Ruminations, Grandiose Hallucination Type: Denies, Auditory Delusion Type: Denies, Grandeur - Cognitive Function Orientation: A&O x 4 Level of Consciousness: Awake, Alert, Appropriate Cognition: Impaired Cognition, Impaired Ability to Abstract Estimated Intelligence: Normal Insight: Difficulty Acknowledging Presence of Psyciatric Problems Judgment Within Normal Limits: No Ability to Make Reasonable Decisions: Serverely Impaired - Medication Compliance Cooperative with Inpatient Medication Regimen: Yes - Group Participation Participates in Group Activities: Yes Assessment - Assessment Merits Inpatient Hospitalization: For Immediate Safety Inpatient DSM-V Dx: F20.9 Clinical Impression: Isaiah is a 23-year-old black man from [place] who is diagnosed with schizophrenia who is in the hospital following a few incidents of his bizarre behavior, trespassing, and eventually being found in the women's bathroom of the [facility]. He is started on Risperdal and is scheduled to get Invega Sustenna. Plan - Plan Treatment Plan: Name: ISAIAH JONES Birthdate: 1995 [id number] Risperdal at bedtime increased from 2 mg of 4 mg. We will wait to assess him daily. 10/29/18 Accepted Risperdal increase. Plan for injectable Saturday. 10/30/18 Risperdal is having a positive effect. Injectable to be administered Saturday. Continue contact with mom, Deepti. Continued Medication Management: Different Medication Medications: Current Medications Acetaminophen (Tylenol Tab*) 650 mg PO Q4H PRN PRN Reason: PAIN or TEMP > 101 F Al Hydrox/Mg Hydrox/Simethicone (Maalox Plus*) 30 ml PO Q4H PRN PRN Reason: INDIGESTION Lorazepam (Ativan Tab(*)) 1 mg PO Q4H PRN PRN Reason: ANXIETY Lorazepam (Ativan Tab(*)) 2 mg PO BEDTIME ROSALINE Last Admin: 10/29/18 20:56 Dose: 2 mg Multivitamins (Theragran Tab*) 1 tab PO DAILY ROSALINE Last Admin: 10/30/18 10:06 Dose: Not Given Olanzapine (Zyprexa *Odt*) 10 mg PO Q6H PRN PRN Reason: AGITATION Paliperidone Palmitate (Invega Sustenna*) 234 mg IM ONCE ONE Stop: 10/31/18 13:01 Paliperidone Palmitate (Invega Sustenna*) 156 mg IM ONCE ONE Stop: 11/03/18 13:01 Risperidone (Risperdal*) 4 mg PO BEDTIME ROSALINE Last Admin: 10/29/18 20:56 Dose: 4 mg
[2018-10-30] MEDS: LORazepam TAB(*) 1 MG PO SCH (21:05)
[2018-10-30] MEDS: risperiDONE TAB* 2 MG PO SCH (21:05)
[2018-10-31] MEDS: Vitamin THERAPEUTIC TAB PO SCH (10:25)
--- NOTE | 2018-10-31 11:44 | PN ---
BSU: Group Therapy Note - Service Type Service Type: [id number] Group Psychotherapy - Cognitive Behavioral Group Therapy ( CBT):Patient attended CBT programming this morning and presented with euythymic affect that varied with discussion. Although responsive to direct prompts to respond to questions, patient did not engage in spontaneous conversation.
[2018-10-31] MEDS ORDERED: Paliperidone SUSTENNA* 234 MG/1.5 ML IM ONE (13:00)
--- NOTE | 2018-10-31 14:16 | PN ---
Subjective - Subjective Date of Service: 10/31/18 Service Type: [id number] Hosp care 25 min moderate complexity Subjective: I spoke with Isaiah today who very specifically stated, "No. There is nothing going on. I wanted to tell you that." He continues to look out the side of his eye while he is talking to me. He remains paranoid but seems less confused. He is going to groups and participating. I spoke with his mother, Deepti, today. She states he was speaking another language last night on the phone, a language she didn't know. Objective - General Observations Appearance: Neat Appears Stated Age: Yes Stature: WNL Posture: WNL Eye Contact: Intermittent Behavior/Activity: Peculiar - Interaction Observations Attitude Towards Examiner: Cooperative, Anxious, Confused, Mistrustful Stated Mood: Dysphoric, Anxious Affect: Restricted Speech Pattern/Tone: Clear, Delayed Thought Process: Disorganized Perception: WNL Thought Content: Preoccupation/Ruminations, Paranoid Hallucination Type: Denies, Auditory Delusion Type: Denies - Cognitive Function Orientation: A&O x 4 Level of Consciousness: Awake, Alert, Appropriate Cognition: Impaired Cognition, Impaired Ability to Abstract Estimated Intelligence: Normal Insight: Difficulty Acknowledging Presence of Psyciatric Problems Judgment Within Normal Limits: No Ability to Make Reasonable Decisions: Serverely Impaired - Medication Compliance Cooperative with Inpatient Medication Regimen: Yes - Group Participation Participates in Group Activities: Yes Assessment - Assessment Merits Inpatient Hospitalization: For Immediate Safety Inpatient DSM-V Dx: F20.9 Clinical Impression: Isaiah is a 23-year-old black man from [place] who is diagnosed with schizophrenia who is in the hospital following a few incidents of his bizarre behavior, trespassing, and eventually being found in the women's bathroom of the [facility]. He is started on Risperdal and is scheduled to get Invega Sustenna. Plan - Plan Treatment Plan: Name: ISAIAH JONES Birthdate: 1995 [id number] Risperdal at bedtime increased from 2 mg of 4 mg. We will wait to assess him daily. 10/29/18 Accepted Risperdal increase. Plan for injectable Saturday. 10/30/18 Risperdal is having a positive effect. Injectable to be administered Saturday. Continue contact with mom, Deepti. 10/31/18 Continue interacting with Isaiah as well as possible. Injection to be administered today. Continue to update mom. Continued Medication Management: Different Medication Medications: Current Medications Acetaminophen (Tylenol Tab*) 650 mg PO Q4H PRN PRN Reason: PAIN or TEMP > 101 F Al Hydrox/Mg Hydrox/Simethicone (Maalox Plus*) 30 ml PO Q4H PRN PRN Reason: INDIGESTION Lorazepam (Ativan Tab(*)) 1 mg PO Q4H PRN PRN Reason: ANXIETY Lorazepam (Ativan Tab(*)) 2 mg PO BEDTIME ROSALINE Last Admin: 10/30/18 21:05 Dose: 2 mg Multivitamins (Theragran Tab*) 1 tab PO DAILY ROSALINE Last Admin: 10/31/18 10:25 Dose: 1 tab Olanzapine (Zyprexa *Odt*) 10 mg PO Q6H PRN PRN Reason: AGITATION Paliperidone Palmitate (Invega Sustenna*) 156 mg IM ONCE ONE Stop: 11/03/18 13:01 Risperidone (Risperdal*) 4 mg PO BEDTIME ROSALINE Last Admin: 10/30/18 21:05 Dose: 4 mg
[2018-10-31] MEDS: risperiDONE TAB* 2 MG PO SCH (21:22)
[2018-10-31] MEDS: LORazepam TAB(*) 1 MG PO SCH (21:24)
[2018-11-01] MEDS: Vitamin THERAPEUTIC TAB PO SCH (09:13)
[2018-11-01] MEDS: LORazepam TAB(*) 1 MG PO SCH (20:27)
[2018-11-01] MEDS: risperiDONE TAB* 2 MG PO SCH (20:27)
[2018-11-02] MEDS: Vitamin THERAPEUTIC TAB PO SCH (09:51)
[2018-11-02] MEDS: risperiDONE TAB* 2 MG PO SCH (20:33)
[2018-11-02] MEDS: LORazepam TAB(*) 1 MG PO SCH (20:34)
--- NOTE | 2018-11-02 21:15 | PN ---
Subjective - Subjective Date of Service: 11/02/18 Service Type: 10604 Hosp care 25 min moderate complexity Subjective: Isaiah appears slow and subdued and denies any problem including mood, thoughts or perceptions. Makes poor eye contacts and somewhat guarded during assessment. Objective - General Observations Appearance: Well Groomed Appears Stated Age: Yes Stature: WNL Posture: WNL Eye Contact: Avoidant Behavior/Activity: Slowed - Interaction Observations Attitude Towards Examiner: Cooperative Stated Mood: Dysphoric Affect: Blunted, Flat Speech Pattern/Tone: Delayed, Quiet Volume Thought Process: Coherent, Impoverished Perception: WNL Thought Content: WNL Hallucination Type: Denies Delusion Type: Denies - Cognitive Function Orientation: Person, Place Level of Consciousness: Awake, Alert, Appropriate Cognition: WNL Insight: Difficulty Acknowledging Presence of Psyciatric Problems Judgment Within Normal Limits: No Ability to Make Reasonable Decisions: Serverely Impaired - Medication Compliance Cooperative with Inpatient Medication Regimen: Yes - Group Participation Participates in Group Activities: Yes Assessment - Assessment Merits Inpatient Hospitalization: For Immediate Safety, For Stabilization, For Discharge Planning Inpatient DSM-V Dx: F20.9 Clinical Impression: Isaiah is a 23-year-old black man from [place] who is diagnosed with schizophrenia who is in the hospital following a few incidents of his bizarre behavior, trespassing, and eventually being found in the women's bathroom of the [facility]. He is started on Risperdal and is scheduled to get Invega Sustenna. Plan - Plan Treatment Plan: Name: ISAIAH JONES Birthdate: 1995 [id number] Risperdal at bedtime increased from 2 mg of 4 mg. We will wait to assess him daily. 10/29/18 Accepted Risperdal increase. Plan for injectable Saturday. 10/30/18 Risperdal is having a positive effect. Injectable to be administered Saturday. Continue contact with momDeepti. 10/31/18 Continue interacting with Isaiah as well as possible. Injection to be administered today. Continue to update mom. Continued Medication Management: Continue Outpt Medication Medications: Current Medications Acetaminophen (Tylenol Tab*) 650 mg PO Q4H PRN PRN Reason: PAIN or TEMP > 101 F Al Hydrox/Mg Hydrox/Simethicone (Maalox Plus*) 30 ml PO Q4H PRN PRN Reason: INDIGESTION Lorazepam (Ativan Tab(*)) 1 mg PO Q4H PRN PRN Reason: ANXIETY Lorazepam (Ativan Tab(*)) 2 mg PO BEDTIME ROSALINE Last Admin: 11/02/18 20:34 Dose: 2 mg Multivitamins (Theragran Tab*) 1 tab PO DAILY ROSALINE Last Admin: 11/02/18 09:51 Dose: Not Given Olanzapine (Zyprexa *Odt*) 10 mg PO Q6H PRN PRN Reason: AGITATION Paliperidone Palmitate (Invega Sustenna*) 156 mg IM ONCE ONE Stop: 11/03/18 13:01 Risperidone (Risperdal*) 4 mg PO BEDTIME ROSALINE Last Admin: 11/02/18 20:33 Dose: 4 mg - Discharge Plan Discharge Plan: Outpatient Follow Up Outpatient Program: [facility]
[2018-11-03] MEDS ORDERED: Paliperidone SUSTENNA* 234 MG/1.5 ML IM ONE (10:59)
[2018-11-03] MEDS ORDERED: Paliperidone SUSTENNA* 156 MG/1 ML IM ONE (13:00)
[2018-11-03] MEDS: Vitamin THERAPEUTIC TAB PO SCH (14:07)
--- NOTE | 2018-11-03 15:58 | PN ---
Subjective - Subjective Date of Service: 11/03/18 Service Type: [id number] Hosp care 25 min moderate complexity Subjective: Isaiah accepted the 234 mg injection of Invega Sustenna today. He seemed surprised that it didn't hurt much. He was not talkative today, but was coherent and on topic. He does have a habit of asking for "25 more seconds" before meeting and then disappearing into the bathroom for a few minutes. Still , he is reasonable and pleasant when he does come out. Objective - General Observations Appearance: Neat Appears Stated Age: Yes Stature: WNL Posture: WNL Eye Contact: Intermittent Behavior/Activity: Slowed - Interaction Observations Attitude Towards Examiner: Cooperative, Confused Stated Mood: Dysphoric Affect: Blunted Speech Pattern/Tone: Clear, Delayed, Quiet Volume Thought Process: Disorganized Perception: WNL Thought Content: Preoccupation/Ruminations, Paranoid Hallucination Type: Denies Delusion Type: Denies - Cognitive Function Orientation: A&O x 4 Level of Consciousness: Awake, Alert Cognition: Impaired Cognition, Impaired Attention/Concentration Estimated Intelligence: Normal Insight: Difficulty Acknowledging Presence of Psyciatric Problems Judgment Within Normal Limits: No Ability to Make Reasonable Decisions: Serverely Impaired - Medication Compliance Cooperative with Inpatient Medication Regimen: Yes - Group Participation Participates in Group Activities: Partial Assessment - Assessment Merits Inpatient Hospitalization: For Immediate Safety Inpatient DSM-V Dx: F20.9 Clinical Impression: Isaiah is a 23-year-old black man from [place] who is diagnosed with schizophrenia who is in the hospital following a few incidents of his bizarre behavior, trespassing, and eventually being found in the women's bathroom of the [facility]. He was started on Risperdal and is scheduled to get the second Invega Sustenna injection on . Plan - Plan Treatment Plan: Name: ISAIAH JONES Birthdate: 1995 [id number] Risperdal at bedtime increased from 2 mg of 4 mg. We will wait to assess him daily. 10/29/18 Accepted Risperdal increase. Plan for injectable Saturday. 10/30/18 Risperdal is having a positive effect. Injectable to be administered Saturday. Continue contact with mom, Deepti. 10/31/18 Continue interacting with Isaiah as well as possible. Injection to be administered today. Continue to update mom. 11/03/18 Injection of 234 mg administered today. Plan on for next injection. Continue contact with mom to plan discharge. Continued Medication Management: Different Medication Medications: Current Medications Acetaminophen (Tylenol Tab*) 650 mg PO Q4H PRN PRN Reason: PAIN or TEMP > 101 F Al Hydrox/Mg Hydrox/Simethicone (Maalox Plus*) 30 ml PO Q4H PRN PRN Reason: INDIGESTION Lorazepam (Ativan Tab(*)) 1 mg PO Q4H PRN PRN Reason: ANXIETY Lorazepam (Ativan Tab(*)) 2 mg PO BEDTIME ROSALINE Last Admin: 11/02/18 20:34 Dose: 2 mg Multivitamins (Theragran Tab*) 1 tab PO DAILY ROSALINE Last Admin: 11/03/18 14:07 Dose: Not Given Olanzapine (Zyprexa *Odt*) 10 mg PO Q6H PRN PRN Reason: AGITATION Paliperidone (Invega Er Tab*) 9 mg PO BEDTIME ROSALINE Paliperidone Palmitate (Invega Sustenna*) 156 mg IM ONCE ONE Stop: 11/06/18 11:00 - Discharge Plan Discharge Plan: Outpatient Follow Up
[2018-11-03] MEDS: Paliperidone ER TAB* 9 MG TAB.ER PO SCH (20:44)
[2018-11-03] MEDS: LORazepam TAB(*) 1 MG PO SCH (20:44)
[2018-11-03] MEDS ORDERED: Paliperidone ER TAB* 6 MG TAB.ER PO SCH (21:00)
[2018-11-04] MEDS: Vitamin THERAPEUTIC TAB PO SCH ×2 (09:11→10:01)
[2018-11-04] MEDS: LORazepam TAB(*) 1 MG PO SCH (21:50)
[2018-11-04] MEDS: Paliperidone ER TAB* 9 MG TAB.ER PO SCH (21:50)
[2018-11-05] MEDS: Vitamin THERAPEUTIC TAB PO SCH (10:31)
[2018-11-05] MEDS: Paliperidone ER TAB* 9 MG TAB.ER PO SCH (21:18)
[2018-11-05] MEDS: LORazepam TAB(*) 1 MG PO SCH (21:18)
--- NOTE | 2018-11-05 21:54 | PN ---
Subjective - Subjective Date of Service: 11/05/18 Service Type: [id number] Hosp care 15 min low complexity Subjective: Isaiah is making slow but steady progress. Today he offered the first real smile in response to something silly. He laughed quietly, as well. The oral invega continues and his next injection is due on . Objective - General Observations Appearance: Well Groomed Appears Stated Age: Yes Stature: WNL Posture: WNL Eye Contact: Intermittent Behavior/Activity: Slowed - Interaction Observations Attitude Towards Examiner: Cooperative, Confused Stated Mood: Euthymic Affect: Blunted Speech Pattern/Tone: Clear, Quiet Volume Thought Process: Disorganized Perception: WNL Thought Process: Lethality: Paranoid Ideation Hallucination Type: Denies Delusion Type: Denies - Cognitive Function Orientation: A&O x 4 Level of Consciousness: Awake, Alert, Appropriate Cognition: Impaired Cognition, Impaired Attention/Concentration, Impaired Ability to Abstract Estimated Intelligence: Normal Insight: Difficulty Acknowledging Presence of Psyciatric Problems Judgment Within Normal Limits: No Ability to Make Reasonable Decisions: Serverely Impaired - Medication Compliance Cooperative with Inpatient Medication Regimen: Yes - Group Participation Participates in Group Activities: Yes Assessment - Assessment Merits Inpatient Hospitalization: For Immediate Safety Inpatient DSM-V Dx: F20.9 Clinical Impression: Isaiah is a 23-year-old black man from [place] who is diagnosed with schizophrenia who is in the hospital following a few incidents of his bizarre behavior, trespassing, and eventually being found in the women's bathroom of the [facility]. He was started on Risperdal and is scheduled to get the second Invega Sustenna injection on . Plan - Plan Treatment Plan: Name: ISAIAH JONES Birthdate: 1995 [id number] Risperdal at bedtime increased from 2 mg of 4 mg. We will wait to assess him daily. 10/29/18 Accepted Risperdal increase. Plan for injectable Saturday. 10/30/18 Risperdal is having a positive effect. Injectable to be administered Saturday. Continue contact with momDeepti. 10/31/18 Continue interacting with Isaiah as well as possible. Injection to be administered today. Continue to update mom. 11/03/18 Injection of 234 mg administered today. Plan on for next injection. Continue contact with mom to plan discharge. 11/05/18 Injection of 156 mg due tomorrow. Continue to follow up with mom, Deepti. Continue to monitor for psychosis and mood. Continued Medication Management: Different Medication Medications: Current Medications Acetaminophen (Tylenol Tab*) 650 mg PO Q4H PRN PRN Reason: PAIN or TEMP > 101 F Al Hydrox/Mg Hydrox/Simethicone (Maalox Plus*) 30 ml PO Q4H PRN PRN Reason: INDIGESTION Lorazepam (Ativan Tab(*)) 1 mg PO Q4H PRN PRN Reason: ANXIETY Lorazepam (Ativan Tab(*)) 2 mg PO BEDTIME ROSALINE Last Admin: 11/05/18 21:18 Dose: 2 mg Multivitamins (Theragran Tab*) 1 tab PO DAILY ROSALINE Last Admin: 11/05/18 10:31 Dose: Not Given Olanzapine (Zyprexa *Odt*) 10 mg PO Q6H PRN PRN Reason: AGITATION Paliperidone (Invega Er Tab*) 9 mg PO BEDTIME ROSALINE Last Admin: 11/05/18 21:18 Dose: 9 mg Paliperidone Palmitate (Invega Sustenna*) 156 mg IM ONCE ONE Stop: 11/06/18 11:00 - Discharge Plan Discharge Plan: Outpatient Follow Up
[2018-11-06] MEDS ORDERED: Paliperidone SUSTENNA* 156 MG/1 ML IM ONE (10:59)
[2018-11-06] MEDS: Vitamin THERAPEUTIC TAB PO SCH (12:56)
[2018-11-06] MEDS: LORazepam TAB(*) 1 MG PO SCH (21:04)
[2018-11-06] MEDS: Paliperidone ER TAB* 9 MG TAB.ER PO SCH (21:04)
[2018-11-07] MEDS: Vitamin THERAPEUTIC TAB PO SCH ×2 (08:40→09:38)
--- NOTE | 2018-11-07 14:05 | PN ---
Subjective - Subjective Date of Service: 11/07/18 Service Type: [id number] Hosp care 15 min low complexity Subjective: Isaiah seemed to be more oriented today. He acknowledged that he would like to go home, even if that home is in [place], which he previously hadn't been interested in. Although his eyes remain half closed and he seems sleepy, the latencies in speech have been significantly reduced and his comprehension is improved. Objective - General Observations Appearance: Neat, Well Groomed Appears Stated Age: Yes Stature: WNL Posture: WNL Eye Contact: Average Behavior/Activity: Slowed - Interaction Observations Attitude Towards Examiner: Cooperative, Evasive Stated Mood: Dysphoric Affect: Blunted Speech Pattern/Tone: Clear, Delayed Thought Process: Coherent, [place] Perception: WNL Thought Content: WNL, Paranoid Thought Process: Lethality: Paranoid Ideation Hallucination Type: Denies Delusion Type: Denies - Cognitive Function Orientation: A&O x 4 Level of Consciousness: Awake, Alert, Appropriate Cognition: Impaired Attention/Concentration, Impaired Ability to Abstract Estimated Intelligence: Normal Insight: Difficulty Acknowledging Presence of Psyciatric Problems Judgment Within Normal Limits: No Ability to Make Reasonable Decisions: Serverely Impaired - Medication Compliance Cooperative with Inpatient Medication Regimen: Yes - Group Participation Participates in Group Activities: Yes Assessment - Assessment Merits Inpatient Hospitalization: For Immediate Safety Inpatient DSM-V Dx: F20.9 Clinical Impression: Isaiah is a 23-year-old black man from [place] who is diagnosed with schizophrenia who is in the hospital following a few incidents of his bizarre behavior, trespassing, and eventually being found in the women's bathroom of the [facility]. He was started on Risperdal and is scheduled to get the second Invega Sustenna injection on . Plan - Plan Treatment Plan: Name: ISAIAH JONES Birthdate: 1995 [id number] Risperdal at bedtime increased from 2 mg of 4 mg. We will wait to assess him daily. 10/29/18 Accepted Risperdal increase. Plan for injectable Saturday. 10/30/18 Risperdal is having a positive effect. Injectable to be administered Saturday. Continue contact with Deepti castelan. 10/31/18 Continue interacting with Isaiah as well as possible. Injection to be administered today. Continue to update mom. 11/03/18 Injection of 234 mg administered today. Plan on for next injection. Continue contact with mom to plan discharge. 11/05/18 Injection of 156 mg due tomorrow. Continue to follow up with mom, Deepti. Continue to monitor for psychosis and mood. 11/07/18 Isaiah now has the full complement of Sustenna injections until 03 December 2018. The oral Invega will be stopped at discharge. Plans for discharge continue to develop. We are hoping for next week, but he would have to be accompanied and discharged to friends or family. Also, his mother would like him to go immediately to [place]. Medications: Current Medications Acetaminophen (Tylenol Tab*) 650 mg PO Q4H PRN PRN Reason: PAIN or TEMP > 101 F Al Hydrox/Mg Hydrox/Simethicone (Maalox Plus*) 30 ml PO Q4H PRN PRN Reason: INDIGESTION Lorazepam (Ativan Tab(*)) 1 mg PO Q4H PRN PRN Reason: ANXIETY Lorazepam (Ativan Tab(*)) 2 mg PO BEDTIME ROSALINE Last Admin: 11/06/18 21:04 Dose: 2 mg Multivitamins (Theragran Tab*) 1 tab PO DAILY ROSALINE Last Admin: 11/07/18 09:38 Dose: 1 tab Olanzapine (Zyprexa *Odt*) 10 mg PO Q6H PRN PRN Reason: AGITATION Paliperidone (Invega Er Tab*) 9 mg PO BEDTIME ROSALINE Last Admin: 11/06/18 21:04 Dose: 9 mg - Discharge Plan Discharge Plan: Outpatient Follow Up
[2018-11-07] MEDS: Paliperidone ER TAB* 9 MG TAB.ER PO SCH (20:33)
[2018-11-07] MEDS: LORazepam TAB(*) 1 MG PO SCH (20:33)
[2018-11-08] MEDS: Vitamin THERAPEUTIC TAB PO SCH (09:27)
[2018-11-08] MEDS: Paliperidone ER TAB* 9 MG TAB.ER PO SCH (20:52)
[2018-11-08] MEDS: LORazepam TAB(*) 1 MG PO SCH ×2 (20:52→20:53)
[2018-11-09] MEDS: Vitamin THERAPEUTIC TAB PO SCH (09:51)
[2018-11-09] MEDS: Paliperidone ER TAB* 9 MG TAB.ER PO SCH (21:09)
[2018-11-09] MEDS: LORazepam TAB(*) 1 MG PO SCH (21:10)
[2018-11-10] MEDS ORDERED: LORazepam TAB(*) 1 MG PO PRN (09:10)
[2018-11-10] MEDS: Vitamin THERAPEUTIC TAB PO SCH (09:34)
--- NOTE | 2018-11-10 15:50 | PN ---
Subjective - Subjective Date of Service: 11/10/18 Service Type: [id number] Hosp care 25 min moderate complexity Subjective: Isaiah looks sleepy and seems to be nodding off at times, but he does manage some genuine smiles when notified that he will be discharged on to his mother who will be flying him home to [place]. Isaiah is not very happy with his medications because they are making him so tired. Medication changes have been made (Ativan d/c at bedtime and Invega oral decreased from 9 to 3 mg). Also discussed was Iasiah's behavior upon his arrival here. He does not have a recollection of his behavior. Objective - General Observations Appearance: Neat, Well Groomed Appears Stated Age: Yes Stature: WNL Posture: WNL Eye Contact: Intermittent Behavior/Activity: Slowed - Interaction Observations Attitude Towards Examiner: Cooperative, Confused Stated Mood: Dysphoric, Anxious Affect: Blunted Speech Pattern/Tone: Clear, Quiet Volume Thought Process: Coherent, Goal Directed Perception: WNL Thought Content: WNL Hallucination Type: Denies Delusion Type: Denies - Cognitive Function Orientation: A&O x 4 Level of Consciousness: Awake, Alert, Appropriate Cognition: WNL Estimated Intelligence: Normal Insight: Difficulty Acknowledging Presence of Psyciatric Problems Judgment Within Normal Limits: No Ability to Make Reasonable Decisions: Moderately Impaired - Medication Compliance Cooperative with Inpatient Medication Regimen: Yes - Group Participation Participates in Group Activities: Yes Assessment - Assessment Merits Inpatient Hospitalization: For Immediate Safety Inpatient DSM-V Dx: F20.9 Clinical Impression: Isaiah is a 23-year-old black man from [place] who is diagnosed with schizophrenia who is in the hospital following a few incidents of his bizarre behavior, trespassing, and [facility] He was started on Risperdal and got the second Invega Sustenna injection on 11/06/18. He is now very sleepy and yet pleased with feeling better and going home. Plan - Plan Treatment Plan: Name: ISAIAH JONES Birthdate: 1995 [id number] Risperdal at bedtime increased from 2 mg of 4 mg. We will wait to assess him daily. 10/29/18 Accepted Risperdal increase. Plan for injectable Saturday. 10/30/18 Risperdal is having a positive effect. Injectable to be administered Saturday. Continue contact with mom, Deepti. 10/31/18 Continue interacting with Isaiah as well as possible. Injection to be administered today. Continue to update mom. 11/03/18 Injection of 234 mg administered today. Plan on for next injection. Continue contact with mom to plan discharge. 11/05/18 Injection of 156 mg due tomorrow. Continue to follow up with mom Deepti. Continue to monitor for psychosis and mood. 11/07/18 Isaiah now has the full complement of Sustenna injections until 03 December 2018. The oral Invega will be stopped at discharge. Plans for discharge continue to develop. We are hoping for next week, but he would have to be accompanied and discharged to friends or family. Also, his mother would like him to go immediately to [place]. 11/10/18 Oral Invega decreased to 3 mg and Ativan discontinued at bedtime to address sedation throughout the day. Discharge scheduled for evening to his mother who will be bringing him back to [place]. Continued Medication Management: Different Medication Medications: Current Medications Acetaminophen (Tylenol Tab*) 650 mg PO Q4H PRN PRN Reason: PAIN or TEMP > 101 F Al Hydrox/Mg Hydrox/Simethicone (Maalox Plus*) 30 ml PO Q4H PRN PRN Reason: INDIGESTION Lorazepam (Ativan Tab(*)) 1 mg PO Q4H PRN PRN Reason: ANXIETY Multivitamins (Theragran Tab*) 1 tab PO DAILY ROSALINE Last Admin: 11/10/18 09:34 Dose: 1 tab Olanzapine (Zyprexa *Odt*) 10 mg PO Q6H PRN PRN Reason: AGITATION Paliperidone (Invega Er Tab*) 6 mg PO BEDTIME ROSALINE - Discharge Plan Discharge Plan: Outpatient Follow Up
[2018-11-10] MEDS ORDERED: Paliperidone ER TAB* 3 MG TAB.ER PO SCH (21:00)
[2018-11-10] MEDS ORDERED: LORazepam TAB(*) 1 MG PO SCH (21:00)
[2018-11-10] MEDS ORDERED: Paliperidone ER TAB* 6 MG TAB.ER PO SCH (21:00)
[2018-11-11] MEDS: Vitamin THERAPEUTIC TAB PO SCH (09:39)
[2018-11-12] MEDS: Vitamin THERAPEUTIC TAB PO SCH (09:07)
[2018-11-12] MEDS ORDERED: hydrOXYzine HCL TAB* 50 MG PO PRN (11:03)
--- NOTE | 2018-11-12 11:18 | PN ---
Subjective - Subjective Date of Service: 11/12/18 Service Type: [id number] Hosp care 15 min low complexity Subjective: Isaiah is doing well. He appears to be more alert today, perhaps due to discontinuing the Invega oral tablet last night. He states he's feeling well and is eager to leave tomorrow with his mom who is flying up from [place] tomorrow. I spoke with Deepti, his mom, who is planning on arriving tomorrow at noon, although she may be delayed by [facility] traffic. Discharge will occur upon her arrival. Objective - General Observations Appearance: Neat, Well Groomed Appears Stated Age: Yes Stature: WNL Posture: WNL Eye Contact: Average Behavior/Activity: Slowed - Interaction Observations Attitude Towards Examiner: Cooperative Stated Mood: Euthymic Affect: Flat Speech Pattern/Tone: Clear Thought Process: Coherent, Goal Directed Perception: WNL Thought Content: WNL Hallucination Type: None Delusion Type: None - Cognitive Function Orientation: A&O x 4 Level of Consciousness: Awake, Alert, Appropriate Cognition: WNL, Impaired Attention/Concentration, Impaired Ability to Abstract Estimated Intelligence: Normal Insight: Difficulty Acknowledging Presence of Psyciatric Problems Judgment Within Normal Limits: No Ability to Make Reasonable Decisions: Mildly Impaired - Medication Compliance Cooperative with Inpatient Medication Regimen: Yes - Group Participation Participates in Group Activities: Yes Assessment - Assessment Inpatient DSM-V Dx: F20.9 Clinical Impression: Isaiah is a 23-year-old black man from [place] who is diagnosed with schizophrenia who is in the hospital following a few incidents of his bizarre behavior, trespassing, and eventually being found in the women's bathroom of the [facility]. He was started on Risperdal and got the second Invega Sustenna injection on 11/06/18. He is now very sleepy and yet pleased with feeling better and going home. Plan - Plan Treatment Plan: Name: ISAIAH JONES Birthdate: 1995 [id number] Risperdal at bedtime increased from 2 mg of 4 mg. We will wait to assess him daily. 10/29/18 Accepted Risperdal increase. Plan for injectable Saturday. 10/30/18 Risperdal is having a positive effect. Injectable to be administered Saturday. Continue contact with mom, Deepti. 10/31/18 Continue interacting with Isaiah as well as possible. Injection to be administered today. Continue to update mom. 11/03/18 Injection of 234 mg administered today. Plan on for next injection. Continue contact with mom to plan discharge. 11/05/18 Injection of 156 mg due tomorrow. Continue to follow up with mom Deepti. Continue to monitor for psychosis and mood. 11/07/18 Isaiah now has the full complement of Sustenna injections until 03 December 2018. The oral Invega will be stopped at discharge. Plans for discharge continue to develop. We are hoping for next week, but he would have to be accompanied and discharged to friends or family. Also, his mother would like him to go immediately to [place]. 11/10/18 Oral Invega decreased to 3 mg and Ativan discontinued at bedtime to address sedation throughout the day. Discharge scheduled for evening to his mother who will be bringing him back to [place]. 11/12/18 Isaiah is doing well after Invega discontinued. He seems to be more alert. Will continue on no oral meds. Will start hydroxyzine HCl 50 mg for insomnia PRN. Medications: Current Medications Acetaminophen (Tylenol Tab*) 650 mg PO Q4H PRN PRN Reason: PAIN or TEMP > 101 F Al Hydrox/Mg Hydrox/Simethicone (Maalox Plus*) 30 ml PO Q4H PRN PRN Reason: INDIGESTION Hydroxyzine HCl (Atarax Tab*) 50 mg PO BEDTIME PRN PRN Reason: insomnia Multivitamins (Theragran Tab*) 1 tab PO DAILY ROSALINE Last Admin: 11/12/18 09:07 Dose: 1 tab - Discharge Plan Discharge Plan: Outpatient Follow Up
[2018-11-13 08:14] VITALS: BP 131/71
[2018-11-13] MEDS: Vitamin THERAPEUTIC TAB PO SCH (08:44)
[2018-11-13] MEDS ORDERED: hydrOXYzine HCL TAB* 50 MG PO PRN (13:13)
[2018-11-13] MEDS ORDERED: Paliperidone ER TAB* 3 MG TAB.ER PO ONE (15:00)
--- NOTE | 2018-11-17 15:02 | DS ---
CC: [facility], [address] [place] [id number], , phone [phone], * DISCHARGE SUMMARY: DATE OF ADMISSION: 10/27/18 DATE OF DISCHARGE: 11/13/18 PROVIDER: Suzy Mata NP, Psychiatry. SUPERVISING PHYSICIAN: Dr. Ravindra De La Fuente.* (DICTATED BY SUZY MATA NP ) DIAGNOSIS: Schizophrenia. CONDITION AT THE TIME OF DISCHARGE: Improved, psychiatrically cleared, more stable. Isaiah participated in groups and was adequately social with peers. His mother is agreeable to discharge as is Isaiah. He has done well here psychiatrically, improving significantly. He tolerated the addition of Invega oral and injectable well. He did not like Ativan as it made him too sedated. He will be attending [facility] in [place], [place]. MENTAL STATUS EXAM: At the time of discharge, Isaiah is calm, cooperative, and makes good eye contact. He is alert and oriented x4. His grooming is good. His speech pace is normal. His voice is soft. Thought processes are logical. He is not overtly psychotic. He may still be delusional, though he denies this. He denies AH, VH, SI, and HI. His insight is fair. His judgment is fair. He is willing to follow up and he is urged to see a therapist. DISCHARGE INSTRUCTIONS TO THE PATIENT: Part A: Medications: 1. Hydroxyzine 50 mg tablets at bedtime p.r.n. sleep, dispensed 30 tabs to a pharmacy in [place]. 2. He has also been injected with Invega Sustenna 234 and 156. His next injection is due 12/03/18. I would recommend 234 mg of Invega Sustenna. Part B: Diet is regular. Part C: Activities as tolerated. Isaiah is a nonsmoker. There are no studies pending at the time of discharge. Part D: Followup care: He has an appointment at [facility] in [place], [place] on 11/20/18 at 9 a.m. as a general intake. He has also been referred to [facility] and there are Saturday night socials, the first one being 10/04/19. He is being sent to [facility] in [place], [place]. He is also asked to follow up with the primary care provider, which he states he does not currently have, within 30 days. Part E: Isaiah is being discharged to the care of his mother and they are traveling back to [place] together. Part F: Substance abuse treatment is not indicated. HOSPITAL COURSE: Part A: Chief complaint: "I have had 2 panic attacks that led me to the hospital." The patient is a 23-year-old black male who is single, who has a history of schizophrenia according to his mother, who arrives brought in by police and is here on a 9.39 status after being found in the women's bathroom of the [facility] and apparently locking himself inside either being too afraid or too confused to come out. When I speak to Isaiah, he has very little to say to me. He appears to be tired or catatonic. He is slow to move and his voice is extremely soft. He sometimes mumbles and he sometimes trails off. His description of his mental illness is that he has had panic attacks. He states that these have been going on for more than 15 years. He states he came from [place] to enroll in [employer], but he is undecided about what in particular he wants to do. He states he gets around from [place] to [place] by taking a bus and by walking. I did speak with his mom, Deepti Sahni. Her phone number is [phone]. She indicates that Isaiah is a graduate of the [employer] and once he graduated, he started acting strangely. He used a knife threateningly. He was diagnosed with paranoid schizophrenia. He was [place] acted. He was given olanzapine 10 mg at bedtime, which worked well for him, although he never agreed to take the medications. She had to crush them into his food and he would only eat the food as long as he could not taste the medications. He eventually got himself off of the medications and for a while he did well. Then in June, the before Mother's Day, he said he was going to [place]. He called his mother to tell her this. She asked why he wanted to leave so quickly and he did not really answer, stating he would text her the answer, but he simply just got on a bus and left. He got to [place], dropped off his suitcase at his cousin's house and left. They followed him using [employer]. Deepti asked the police for help. They found out that he was not able to be found at first and they found out later that this was because he was walking around inside buildings. He was eventually found to have trespassed some private property. They talked to Madeline Herman and as it was her last day, things did not get followed up on. Deepti wants to bring him back to [place]. She comes up every couple of weekends to try to take care of him when she can find him. She took him to a neuropsychiatrist in [place], who put him on a medication that he would not take. The first weekend in September, she took him to Dr. Sonia Poe, who is a psychologist in [place]. She has offered him many appointments and he has refused to go back. Deepti is afraid that he will begin walking back to [place] and he is disorganized enough to do that she believes. Isaiah is not oriented to time or date. He does know the month and the year. He is not clear about where he is, what building he is in. He says he is at [employer] when he is truly in the hospital. He does not know his mother's phone number. At this time, he is disorganized and confused. He may be hearing voices, it is unclear. He is quite ill. Part B: Psychiatric treatment was rendered. Isaiah was admitted to the adult behavioral unit and placed on 15-minute checks for safety. He did eventually advance to 30-minute checks and staff pass privileges. Isaiah struggled at the beginning of his stay, being very disorganized and psychotic but eventually doing well on the unit and going to groups. He interacted with his peers well. He initially declined to take medications. It took some time for Isaiah to agree, but medications were started. For example, we started Risperdal oral, which he took and tolerated. We then went to [facility] on 11/03/18 and then on 11/06/18, he was injected with 156 mg of Invega Sustenna. On 11/07/18, we discussed that the oral Invega would be stopped at discharge. The planning for discharge continued to develop as Isaiah was improving. He remained very sleepy with the presence of oral Invega and Ativan at bedtime. He would be seen with his eyes half closed and almost dozing at times. On 11/10/18, oral Invega was decreased to 3 mg and Ativan was discontinued at bedtime to address the sedation he was experiencing throughout the day. He tolerated it and did not complain about it, but he was very pleased when, on and 11/12/18, he did well after the Invega was discontinued at bedtime. He was more alert. He had more to say and eventually voiced that he did not want to go back to [place]. I did discuss with his mom Deepti that he did not want to go back to [place]. She indicated that it was not a negotiable decision and that she wanted him to come back with her. Deepti did arrive on 11/13/18 to burr picker Isaiah, who went with her in her car. They drove, perhaps due to Isaiah having lost all of his identification. I did start hydroxyzine HCl 50 mg for insomnia p.r.n. as Deepti was very concerned that Isaiah would not be sleeping when he got home. He did not use the hydroxyzine in the hospital to sleep. Upon discharge, Isaiah was calm and cooperative. He was making sense and was logical. He was oriented to the future and that for a time he would have to go to [place] and if he got better and still wanted to come back to [place] that was really up to him. He is delusional, he remains delusional about his purpose of being in [place]. It seems that Isaiah has been ill since at least June, which is nearly 5 months of psychotic illness. At this point, in our setting, he is calm and cooperative and eager to leave. There are no problems with his behavior. He is not suicidal. He is still delusional believing that he is on the football team at [employer] and that there are bad things awaiting him in [place]. Nevertheless, sending Isaiah home is the correct action. He has been taken off oral medications at this time, and his behavior has remained improved. He is no longer sedated by the oral medications and he is still in behavioral control. SUZY MATA, BURNISHER AND BUMPER [id number]/[facility] #: [id number] [facility] INSANERosita
== END 2018-11-13 17:37 | disposition home or self-care (01) | DRG 750 ==
LOC: ED 17:47 → BSU 10-27
PROVIDERS: ADMIT Psychiatry & Neurology Psychiatry; ATTEND Psychiatry & Neurology Psychiatry
PROC: GZHZZZZ Group Psychotherapy (ICD-10-PCS; principal; 2018-10-31)
DX: F20.0 Paranoid schizophrenia (principal); H91.90 Unspecified hearing loss, unspecified ear; F31.9 Bipolar disorder, unspecified
CPT/HCPCS: 36415; 80061; 83036; 90853; 99222; 99231; 99232; 99233; 99238; 99283; A9270-GY; J2426